=== PATIENT | male | born 1935 | race Caucasian/White ===

== ENCOUNTER → 2017-12-17 07:39 | Outpatient (CLI) | payer MEDICARE, BC | END | disposition home or self-care (01) | LOC: D.CT 07:39 | DX: R10.9 Unspecified abdominal pain (principal) ==

== ENCOUNTER 2018-01-13 16:15 | Inpatient (IN) | payer MEDICARE, BC ==
[~2018-01-13] VITALS: Ht 177.8 cm; Wt 62.8 kg
--- NOTE | ~2018-01-13 | PN ---
PATIENT:SALMA SOMMER MEDICAL RECORD: [id number] [facility] ADMISSION DATE: 01/13/18 PROGRESS NOTE DATE OF SERVICE: 01/18/2018 SUBJECTIVE: The patient's case was discussed with staff. He has no new complaint. OBJECTIVE: The patient denies intent to harm himself or others. He generally is tolerating his medicines well. ASSESSMENT: No change in diagnoses. PLAN: The patient is having some difficulty with consolidating his sleep. I am going to prescribe trazodone at a dose of 100 mg at bedtime to assist with this. His long-term prognosis is guarded. TRANSINT:[id number] Voice Confirmation ID: [id number] DOCUMENT ID: [id number] HEATH BREEN MD at 0827 CC: [id number] DICTATION DATE: 01/18/18 1429 BREASTFEEDING EDUCATOR: 01/18/18 1436 ADM IN [place] [id number] [place] [id number]
--- NOTE | ~2018-01-13 | PN ---
PATIENT:SALMA SOMMER MEDICAL RECORD: [id number] LOCATION:[facility] ADMISSION DATE: 01/13/18 PROGRESS NOTE DATE OF SERVICE: 01/16/2018 SUBJECTIVE: The patient's case was discussed with staff. He has no new complaint. OBJECTIVE: The patient is in good behavioral control with limited insight about his condition. He generally tolerates his medicines well. Eye contact is fair. ASSESSMENT: No change in diagnoses. PLAN: Supportive and educational interventions were made. Long-term prognosis is guarded. TRANSINT:[id number] Voice Confirmation ID: [id number] DOCUMENT ID: [id number] HEATH BREEN MD at 1426 CC: [id number] DICTATION DATE: 01/16/18 1219 MENDER HAND: 01/16/18 1227 ADM IN [place] [id number] [place] [address]
--- NOTE | ~2018-01-13 | PN ---
PATIENT:SALMA SOMMER MEDICAL RECORD: [id number] LOCATION:[facility] ADMISSION DATE: 01/13/18 PROGRESS NOTE DATE OF SERVICE: 01/15/2018 SUBJECTIVE: The patient's case was discussed with staff. He has no new complaint. OBJECTIVE: The patient is much calmer today. He has very limited insight about his condition. ASSESSMENT: No change in diagnoses. PLAN: The patient will be started on Aricept at a dose of 5 mg at bedtime. Aricept is being used to treat his underlying cognitive impairment. His long-term prognosis is guarded. TRANSINT:[id number] Voice Confirmation ID: [id number] DOCUMENT ID: [id number] HEATH BREEN MD at 1157 CC: [id number] DICTATION DATE: 01/15/18 1201 FISH BAILER: 01/15/18 1254 ADM IN [place] [address] [place] [address]
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
--- NOTE | ~2018-01-13 | PN ---
PATIENT:SALMA SOMMER MEDICAL RECORD: [id number] [facility]ATION:[facility] ADMISSION DATE: 01/13/18 PROGRESS NOTE DATE OF SERVICE: 01/17/2018 SUBJECTIVE: The patient's case was discussed with staff. He has no new complaint. OBJECTIVE: The patient denies intent to harm himself or others. He generally tolerates his medicines well. He is much calmer. He does not appear to be over sedated. ASSESSMENT: No change in diagnoses. PLAN: Brief supportive and educational interventions were made. Long-term prognosis is guarded. I am going to continue him on Klonopin, but I will reduce the dose to 1 mg twice a day. TRANSINT:[id number] Voice Confirmation ID: [id number] DOCUMENT ID: [id number] HEATH BREEN MD at 1354 CC: [id number] DICTATION DATE: 01/17/18 1447 PAPER REWINDER: 01/17/18 1456 ADM IN [place] [id number] [place] [address]
--- NOTE | ~2018-01-13 | PN ---
PATIENT:SALMA SOMMER MEDICAL RECORD: [id number] LOCATION:[facility] ADMISSION DATE: 01/13/18 PROGRESS NOTE DATE OF SERVICE: 01/19/2018 SUBJECTIVE: The patient's case was discussed with staff. He has no new complaint. OBJECTIVE: The patient is disorganized and difficult to understand. He seems distressed about something he is trying to tell me about and it has to do with his wallet and owing someone $5. I cannot make sense of it and I tried to reassure him, but without effect. He has not been aggressive today, although he was quite agitated last evening. It did not rise to the level of requiring a p.r.n. dose of medication. Unfortunately, he did not sleep well last night. ASSESSMENT: No change in diagnoses. PLAN: Current medicines and therapies have been reviewed. Long-term prognosis is guarded. TRANSINT:[id number] Voice Confirmation ID: [id number] DOCUMENT ID: [id number] HEATH BREEN MD at 1127 CC: [id number] DICTATION DATE: 01/19/18 1012 EDUCATIONAL CONSULTANT: 01/19/18 1105 DIS IN 01/20/18 [facility] [address] [place] [address]
[2018-01-13] MEDS ORDERED: BAYER CHEWABLE81 MG PO (16:32)
[2018-01-13] MEDS ORDERED: ATIVAN1 MG PO (16:32)
[2018-01-13] MEDS ORDERED: MELATONIN10 M1 PO (16:33)
[2018-01-13] MEDS ORDERED: METFORMIN HCL500 M1 PO (16:34)
[2018-01-13] MEDS ORDERED: TOPROL XL50 MG (16:34)
[2018-01-13] MEDS ORDERED: NITROSTAT0.4 MG SL (16:35)
[2018-01-13] MEDS ORDERED: RESTORIL15 MG PO (16:36)
[2018-01-13 18:27] VITALS: BP 136/82; BMI 19.8
[2018-01-14 05:21] LABS: APPEARANCE CLEAR (CLEAR); BILIRUBIN NEGATIVE (NEGATIVE); COLOR YELLOW (YELLOW); GLUCOSE NEGATIVE (NEGATIVE); KETONE NEGATIVE (NEGATIVE); NITRITE NEGATIVE (NEGATIVE); PROTEIN NEGATIVE (NEGATIVE); SPECIFIC GRAVITY 1.015 (1.005-1.020); UROBILINOGEN NORMAL (NORMAL)
[2018-01-14 07:19] LABS: BASOPHILS 0.6 % (0-2); HEMATOCRIT 41.7 % (42.0-54.0); HEMOGLOBIN 14.7 g/dL (13.5-17.5); IMMATURE GRANULOCYTES 2.8 % (0-5); MCH 30.6 pg (26.0-34.0); MCHC 35.3 g/dL (31.0-37.0); MCV 86.9 fL (80.0-100.0); MEAN PLATELET VOLUME 10.1 fL (7.4-10.4); MONOCYTES 13.9 % (2-11); NEUTROPHILS 60.7 % (40-80); PLATELET COUNT 129 10x3/uL (130-400); RDW 16.8 % (11.5-14.5); WBC 5.4 10x3/uL (4.8-10.8)
[2018-01-14 07:29] LABS: ALBUMIN 4.3 g/dL (3.4-5.0); ANION GAP 11.3 mmol/L (8-16); BILIRUBIN - TOTAL 1.3 mg/dL (0.2-1.3); CALCIUM 8.8 mg/dL (8.5-10.1); CARBON DIOXIDE 27.9 mmol/L (21.0-32.0); CHOL - HDL RATIO 3.5 ratio (2.3-4.9); CREATININE - SERUM 1.1 mg/dL (0.6-1.3); LDL-HDL RATIO 2.2 ratio (1.5-3.5); POTASSIUM - SERUM 4.2 mmol/L (3.5-5.1); PROTEIN - SERUM 7.5 g/dL (6.4-8.2); THYROID STIMULATING HORMONE 1.43 uIU/mL (0.36-3.74)
[2018-01-14 19:48] VITALS: BP 121/65
[2018-01-15 05:14] LABS: RAPID PLASMA REAGIN Non Reactive (Non Reactive)
[2018-01-15 07:23] LABS: VITAMIN D 25 HYDROXY 37.7 ng/mL (30.0-100.0)
[2018-01-15 08:16] LABS: FOLATE (FOLIC ACID) - SERUM 11.8 ng/mL (>3.0)
[2018-01-15 08:35] VITALS: BP 152/86
[2018-01-15 19:39] VITALS: BP 141/63
[2018-01-16 08:00] VITALS: BP 128/80
[2018-01-16 19:59] VITALS: BP 124/62
[2018-01-17 09:57] VITALS: BP 185/100
[2018-01-17 13:27] VITALS: Ht 177.8 cm; Wt 62.8 kg
[2018-01-17 20:29] VITALS: BP 141/71
[2018-01-18 08:00] VITALS: BP 130/78
[2018-01-18 20:02] VITALS: BP 100/65
[2018-01-19 08:35] VITALS: BP 118/79
[2018-01-19 19:50] VITALS: BP 137/78
[2018-01-20 07:38] VITALS: BP 115/53
[2018-01-20 08:12] LABS: BASOPHILS 0.1 % (0-2); EOSINOPHILS 0 % (0-7); HEMATOCRIT 38.3 % (42.0-54.0); HEMOGLOBIN 13.3 g/dL (13.5-17.5); IMMATURE GRANULOCYTES 0.7 % (0-5); LYMPHOCYTES 4.4 % (15-50); MCH 30.6 pg (26.0-34.0); MCHC 34.7 g/dL (31.0-37.0); MCV 88.2 fL (80.0-100.0); MEAN PLATELET VOLUME 10.2 fL (7.4-10.4); MONOCYTES 7.8 % (2-11); RBC 4.34 10x6/uL (4.20-6.10); RDW 16.6 % (11.5-14.5); WBC 15.9 10x3/uL (4.8-10.8)
[2018-01-20 08:24] LABS: PLATELET COUNT 158 10x3/uL (130-400)
[2018-01-20] MEDS ORDERED: IPRAT-ALBUT 0.5-3 ML INH (08:28)
[2018-01-20] MEDS ORDERED: Aricept PO (08:28)
[2018-01-20] MEDS ORDERED: CATAPRES0.1 MG PO (08:29)
[2018-01-20] MEDS ORDERED: GLUCAGEN1 MG/VIAL IM (08:30)
[2018-01-20] MEDS ORDERED: SENNA8.6 MG PO (08:30)
[2018-01-20] MEDS ORDERED: HUMULIN R100 U/ML SC (08:31)
[2018-01-20] MEDS ORDERED: GLUCAGEN1 MG/VIAL SC (08:31)
[2018-01-20 08:41] LABS: ALBUMIN 3.2 g/dL (3.4-5.0); ANION GAP 17.7 mmol/L (8-16); BILIRUBIN - TOTAL 2.39 mg/dL (0.2-1.3); CALCIUM 8.5 mg/dL (8.5-10.1); CARBON DIOXIDE 22.2 mmol/L (21.0-32.0); CREATININE - SERUM 1.1 mg/dL (0.6-1.3); POTASSIUM - SERUM 3.9 mmol/L (3.5-5.1); PROTEIN - SERUM 6.4 g/dL (6.4-8.2)
== END 2018-01-20 09:15 | disposition short-term general hospital (02) | DRG 57 ==
LOC: D.PSYCH 16:15
PROVIDERS: Family Medicine; Psychiatry & Neurology Psychiatry
DX: G30.1 Alzheimer's disease with late onset (principal); F02.81 Dementia in other diseases classified elsewhere, unspecified severity, with behavioral disturbance; I10 Essential (primary) hypertension; E11.9 Type 2 diabetes mellitus without complications; M41.9 Scoliosis, unspecified; I25.10 Atherosclerotic heart disease of native coronary artery without angina pectoris; G47.00 Insomnia, unspecified; K59.00 Constipation, unspecified; S41.112A Laceration without foreign body of left upper arm, initial encounter; S41.111A Laceration without foreign body of right upper arm, initial encounter; S01.81XA Laceration without foreign body of other part of head, initial encounter; W19.XXXA Unspecified fall, initial encounter; Y92.239 Unspecified place in hospital as the place of occurrence of the external cause; M54.9 Dorsalgia, unspecified; Z95.0 Presence of cardiac pacemaker; Z95.1 Presence of aortocoronary bypass graft

== ENCOUNTER 2018-01-20 09:34 | Inpatient (IN) | payer MEDICARE, BC ==
[~2018-01-20] VITALS: Ht 177.8 cm; Wt 59.4 kg
--- NOTE | ~2018-01-20 | MORECARE ---
CASE MANAGEMENT DISCHARGE SUMMARY PATIENT: SALMA SOMMER UNIT: [id number] ADM DATE: 01/20/18 AGE: 82 : 33 SEX: M ROOM/BED: D.2106 AUTHOR: CHERELLE,DOC PHYSICIAN: REFERRING PHYSICIAN: KATIA MOSQUERA MD DATE OF SERVICE: 01/21/18 Discharge Plan Patient Name: [facility]MER [facility] [facility] 1935 Planned Disposition: Hospice Medical Facility Anticipated Discharge Date: 01/20/18 Discharge Date: 01/20/2018 Expected LOS: 1 Initial Reviewer: [email or web address] Initial Review Date: 01/20/2018 Generated: 01/21/18 10:19 am Comments DCP- Discharge Planning Updated by [email or web address]: Nick Saavedra on 01/20/18 2:[address] Patient Name: SALMA SOMMER Admission Status: Elective Accout number: [id number] Admission Date: 01-20-2018 : 1935 Admission Diagnosis: Attending: KATIA MOSQUERA Current LOS: 1 Anticipated DC Date: 01-20-2018 Planned Disposition: Hospice Medical Facility Primary Insurance: MEDICARE A & B PLANNED EXTERNAL PROVIDER: [facility] Discharge Planning Comments: * Is the patient Alert and Oriented? No 0 * How many steps to enter\exit or inside your home? NONE 0 * PCP DR. LUX DIAMOND (ADMI MEZA NP) 0 * Pharmacy [facility] 0 * Preadmission Environment Acute Care Facility 0 * Facility Name [facility] 0 * ADLs Partial Dependent 0 * Partial ADLs (Assistance needed) Medication Management 0 * Equipment Cane 0 * Other Equipment NO MEDICAL EQUIPMEN PROVIDER PREFERENCE 0 * List name and contact numbers for known caregivers / representatives who currently or will assist patient after discharge: JOSSY ROS, SPOUSE, 0 * Verbal permission to speak to the caregivers and representatives has been obtained from the patient. N/A 0 * Community resources currently utilized None 0 * Please name any agencies selected above. NONE 0 * Additional services required to return to the preadmission environment? Yes 0 * Can the patient safely return to the preadmission environment? No 0 * Has this patient been hospitalized within the prior 30 days at any hospital? Yes 0 CM RECEIVED HOSPICE ORDER, MET WITH PT'S SPOUSE IN ROOM TO DISCUSS DISCHARGE PLANNING AND NEEDS. PT NOT RESPONSIVE. SPOUSE REPORTS PT LIVING AT HOME INDEPENDENTLY WITH HER EXCEPT FOR MEDICATION MANAGEMENT. PT HAS CANE WITH NO MEDICAL EQUIPMENT PROVIDER PREFERENCE AND NO OUTSIDE SERVICES ASSISTING IN THE HOME. PT WAS IN [facility] AND IS NOW MEDICALLY WORSE AND THEY HAVE DISCUSSED HOSPICE WITH THE DOCTORS AND AGREE WITH PLAN. CM DISCUSSED AVAILABILITY OF HOSPICE PROVIDERS AND LOCATIONS, PROVIDED LISTING AND BROCHURES. PT'S SPOUSE SELECTED [facility] AFTER ABOUT 1 HOUR AND WANTS NURSE TO COME AT ABOUT 1730 HOURS THIS EVENING WHEN HER TWO CHILDREN CAN BE HERE TO TALK TO THE NURSE. CM CALLED [facility], , SPOKE TO CHRIS AND PROVIDED REFERRAL INFORMATION. CM FAXED REFERRAL INFORMATION TO [facility] AT [phone]. [facility] TO EVALUATE PT FOR INPATIENT HOSPICE AND MEET WITH FAMILY AT 1530PM TODAY. PT'S SPOUSE, CUTTER [employer]REL DRUM NURSE AND BEDSIDE NURSE NOTIFIED. CM WAITING HOSPICE EVALUATION AND ADMISSION DETERMINATION THIS EVENING. Roof Technician: Nick Saavedra DCPIA - Discharge Planning Initial Assessment Updated by [email or web address]: Nick Saavedra on 01/20/18 3:34 pm * Is the patient Alert and Oriented? No * How many steps to enter\exit or inside your home? NONE * PCP DR. LUX DIAMOND (DAMI MEZA NP) * Pharmacy [facility] * Preadmission Environment Acute Care Facility * Facility Name [facility] * ADLs Partial Dependent * Partial ADLs (Assistance needed) Medication Management * Equipment Cane * Other Equipment NO MEDICAL EQUIPMEN PROVIDER PREFERENCE * List name and contact numbers for known caregivers / representatives who currently or will assist patient after discharge: JOSSY ROS, SPOUSE, * Verbal permission to speak to the caregivers and representatives has been obtained from the patient. N/A * Community resources currently utilized None * Please name any agencies selected above. NONE * Additional services required to return to the preadmission environment? Yes * Can the patient safely return to the preadmission environment? No * Has this patient been hospitalized within the prior 30 days at any hospital? Yes Last DP export: 01/20/18 2:48 Patient Name: SALMA SOMMER Page [id number] at 0919 All edits/amendments must be made on the electronic document DICTATION DATE: 01/21/18918 CREW LEADER: GERALD 01/21/18918 RPT#: [id number] DC DATE:01/20/18 STATUS: DIS IN [facility] [address] [place] [address] END OF REPORT
[~2018-01-20 09:34] MED LIST: ATIVAN1 MG PO; Aricept PO; BAYER CHEWABLE81 MG PO; CATAPRES0.1 MG PO; GLUCAGEN1 MG/VIAL IM; GLUCAGEN1 MG/VIAL SC; HUMULIN R100 U/ML SC; IPRAT-ALBUT 0.5-3 ML INH; MELATONIN10 M1 PO; METFORMIN HCL500 M1 PO; NITROSTAT0.4 MG SL; RESTORIL15 MG PO; SENNA8.6 MG PO; TOPROL XL50 MG
[2018-01-20 11:31] VITALS: BMI 18.8
[2018-01-20 12:21] VITALS: BP 121/48
[2018-01-20 14:25] VITALS: Ht 177.8 cm; Wt 59.4 kg
[2018-01-20 16:56] VITALS: BP 123/51
[2018-01-20 17:52] LABS: APPEARANCE CLEAR (CLEAR); BILIRUBIN 1+ (NEGATIVE); COLOR AMBER (YELLOW); GLUCOSE NEGATIVE (NEGATIVE); KETONE LARGE mg/dL (NEGATIVE); NITRITE NEGATIVE (NEGATIVE); PROTEIN TRACE mg/dL (NEGATIVE)
[2018-01-20 17:54] LABS: BACTERIA FEW /hpf (NONE SEEN); EPITHELIAL CELLS 0-5 /hpf (0-5); WHITE CELLS - URINE 0-5 /hpf (0-5)
== END 2018-01-20 21:35 | disposition hospice, inpatient (51) | DRG 177 ==
LOC: D.M2 09:34
PROVIDERS: Family Medicine
DX: J15.6 Pneumonia due to other Gram-negative bacteria (principal); J96.01 Acute respiratory failure with hypoxia; G93.41 Metabolic encephalopathy; J44.0 Chronic obstructive pulmonary disease with (acute) lower respiratory infection; F02.81 Dementia in other diseases classified elsewhere, unspecified severity, with behavioral disturbance; J15.212 Pneumonia due to Methicillin resistant Staphylococcus aureus; J69.0 Pneumonitis due to inhalation of food and vomit; Z66 Do not resuscitate; E78.00 Pure hypercholesterolemia, unspecified; I25.10 Atherosclerotic heart disease of native coronary artery without angina pectoris; G30.9 Alzheimer's disease, unspecified; E11.9 Type 2 diabetes mellitus without complications; I10 Essential (primary) hypertension; Z95.0 Presence of cardiac pacemaker; Z95.1 Presence of aortocoronary bypass graft; Z95.5 Presence of coronary angioplasty implant and graft

== ENCOUNTER 2018-01-20 22:22 | Inpatient (IN) | payer OTHER ==
[2018-01-20 14:25] VITALS: BMI 18.7
== END 2018-01-21 08:20 | DRG 951 ==
LOC: UNDOADMIN 22:22 → D.M2 22:22
DX: Z51.5 Encounter for palliative care (principal)